=== PATIENT | female | born 1945 | race Caucasian/White ===

== ENCOUNTER 2020-05-11 23:11 | Emergency (ER) | payer MEDICARE ==
[~2020-05-11] VITALS: Ht 152.4 cm; Wt 58.2 kg
[2020-05-11 23:15] VITALS: TEMP 97.7
[2020-05-11 23:42] LABS: BASO % 0.3 % (0.0-2.0); EOS # 0.1 (0.0-0.7); EOS % 1.8 % (0-4.0); GRAN # 5.6 (1.4-6.5); HEMATOCRIT 42.5 % (37.0-47.0); HEMOGLOBIN 14.4 g/dl (12.5-16.0); LYMPH # 1.4 (1.2-3.4); LYMPH % 17.7 % (20.0-51.0); MEAN CELL VOLUME 86 fl (80.0-100.0); MEAN CORPUSCULAR HEMOGLOBIN 29 pg (27.0-31.0); MEAN CORPUSCULAR HGB CONC 34 g/dl (33.0-37.0); MEAN PLATELET VOLUME 12.5 fl (7.4-10.4); MONO # 0.6 (0.1-0.6); MONO % 7.9 % (1.7-9.3); PLATELET COUNT 146 K/mm3 (130-400); RED BLOOD COUNT 4.93 M/mm3 (4.10-5.30); REDCELL DISTRIBUTION WIDTH-CV 13.6 % (11.5-14.5)
[2020-05-11 23:59] LABS: ALANINE AMINOTRANSFERASE 24 U/L (4-34); ALBUMIN 4.1 gm/dL (3.5-5.0); ALKALINE PHOSPHATASE 74 U/L (50-136); ANION GAP 10 mmol/L (7-16); AST,SGOT 34 U/L (15-37); BILIRUBIN,TOTAL 0.7 mg/dL (0.0-1.0); BLOOD UREA NITROGEN 12 mg/dL (7-17); CALCIUM 9.7 mg/dL (8.4-10.2); CARBON DIOXIDE 23 mmol/L (22-30); CHLORIDE 102 mmol/L (98-107); CREATININE, serum 0.61 (0.52-1.25); GLUCOSE 48 mg/dL (74-106); LIPASE 317 U/L (23-300); MAGNESIUM 1.9 mg/dL (1.6-2.3); POTASSIUM 4.2 mmol/L (3.4-5.0); SODIUM 136 mmol/L (137-145); TOTAL PROTEIN 7.5 gm/dL (6.4-8.2)
[2020-05-12 00:06] LABS: C-REACTIVE PROTEIN < 0.5 mg/dL (0.0-0.9); TROPONIN-I < 0.012 ng/mL (0.000-0.035)
[2020-05-12] MEDS ORDERED: ALDACTONE 25MG25 M1 PO (01:00)
[2020-05-12] MEDS ORDERED: LEVOXYL0.112 MG PO (01:00)
[2020-05-12] MEDS ORDERED: GLUCOTROL 5M5 MG/TAB PO (01:01)
[2020-05-12] MEDS ORDERED: COREG 3.123.125 MG/T PO (01:02)
[2020-05-12] MEDS ORDERED: PRINIVIL2.5 MG PO (01:02)
[2020-05-12] MEDS ORDERED: GLUCOPHAGE1000 MG PO (01:03)
[2020-05-12] MEDS ORDERED: ANECREAM TOP (01:04)
[2020-05-12] MEDS ORDERED: TRULICITY0.75 MG/0. SQ (01:05)
[2020-05-12] MEDS ORDERED: RENA-VITE1 TAB PO (01:06)
[2020-05-12] MEDS ORDERED: MASON NATURAL2000 IU PO (01:07)
[2020-05-12 02:13] VITALS: BP 124/48; PULSE 79
== END 2020-05-12 02:40 | disposition home or self-care (01) ==
LOC: COL.ER 23:11
PROVIDERS: Emergency Medicine
DX: E11.649 Type 2 diabetes mellitus with hypoglycemia without coma (principal); R10.13 Epigastric pain; I10 Essential (primary) hypertension; F17.200 Nicotine dependence, unspecified, uncomplicated; Z90.49 Acquired absence of other specified parts of digestive tract; Z90.710 Acquired absence of both cervix and uterus; Z79.84 Long term (current) use of oral hypoglycemic drugs
CPT/HCPCS: J2405; J2550

== ENCOUNTER 2021-01-25 09:01 | Outpatient (RCR) | payer MEDICARE ==
[~2021-01-25 09:01] MED LIST: ALDACTONE50 MG PO; ANECREAM TOP; COREG 3.123.125 MG/T PO; GLUCOPHAGE XR750 MG PO; GLUCOTROL 5M5 MG/TAB PO; LEVOXYL0.1 MG PO; MASON NATURAL2000 IU PO; PRINIVIL2.5 MG PO; RENA-VITE1 TAB PO; TRULICITY0.75 MG/0. SQ
== END 2021-04-05 09:12 | disposition home or self-care (01) ==
LOC: PT.GENESIS 09:01
DX: M79.601 Pain in right arm (principal)

== ENCOUNTER 2021-04-18 08:33 | Emergency (ER) | payer MEDICARE ==
[~2021-04-18] VITALS: Ht 154.9 cm; Wt 59.1 kg
[~2021-04-18 08:33] MED LIST changes: +ALDACTONE 25MG25 M1 PO; -ALDACTONE50 MG PO; -GLUCOPHAGE XR750 MG PO; +GLUCOPHAGE1000 MG PO; -LEVOXYL0.1 MG PO; +LEVOXYL0.112 MG PO
[2021-04-18 08:43] VITALS: TEMP 98.6
[2021-04-18 09:37] LABS: BASO # 0.1 K/mm3 (0.0-0.2); BASO % 0.9 % (0.0-2.0); EOS # 0.1 K/mm3 (0.0-0.7); EOS % 1.9 % (0.0-4.0); GRAN # 3.7 K/mm3 (1.4-6.5); LYMPH # 2.1 K/mm3 (1.2-3.4); LYMPH % 32.7 % (20.0-51.0); MEAN CELL VOLUME 89 fl (80.0-100.0); MEAN CORPUSCULAR HEMOGLOBIN 30 pg (27-31); MEAN CORPUSCULAR HGB CONC 34 g/dl (33.0-37.0); MEAN PLATELET VOLUME 11.5 fl (7.4-10.4); MONO # 0.4 K/mm3 (0.1-0.6); MONO % 6.3 % (1.7-9.3); PLATELET COUNT 142 K/mm3 (130-400); RED BLOOD COUNT 5.28 M/mm3 (4.10-5.30); REDCELL DISTRIBUTION WIDTH-CV 14.1 % (11.5-14.5)
[2021-04-18 09:40] LABS: COLLECTION METHOD CLEAN CATCH
[2021-04-18 09:47] LABS: ALANINE AMINOTRANSFERASE 19 U/L (0-55); ALBUMIN 4.5 gm/dL (3.4-4.8); ALKALINE PHOSPHATASE 58 U/L (40-150); ANION GAP 12 mmol/L (7-16); AST,SGOT 21 U/L (5-34); BILIRUBIN,TOTAL 0.9 mg/dL (0.2-1.2); BLOOD UREA NITROGEN 20 mg/dL (10-20); CALCIUM 10.2 mg/dL (8.4-10.2); CARBON DIOXIDE 22 mmol/L (23-31); CHLORIDE 101 mmol/L (98-107); CREATININE, serum 0.94 mg/dL (0.57-1.11); GLUCOSE 170 mg/dL (70-99); LIPASE 444 U/L (8-78); POTASSIUM 4.6 mmol/L (3.5-4.5); SODIUM 135 mmol/L (136-145); TOTAL PROTEIN 8.5 gm/dL (6.2-8.1)
[2021-04-18 09:50] LABS: PH 7 (5-8); SQUAMOUS EPITHELIAL None Seen /hpf (0-10); URINE APPEARANCE Clear (CLEAR/HAZY); URINE BACTERIA Occasional (NONE SEEN); URINE BILIRUBIN Negative (NEGATIVE); URINE BLOOD Negative (NEGATIVE); URINE COLOR Yellow (YELLOW); URINE GLUCOSE Negative (NEGATIVE); URINE KETONE Negative (NEGATIVE); URINE LEUKOCYTE ESTERASE 2+ (NEGATIVE); URINE NITRATE Negative (NEGATIVE); URINE PROTEIN(semi-quant) Negative (NEGATIVE); URINE RBC None Seen /hpf (0-2); URINE UROBILINOGEN Negative (NEGATIVE)
[2021-04-18 09:55] LABS: TROPONIN-I < 0.010 ng/mL (0.00-0.033)
[2021-04-18] MEDS ORDERED: MACROBID 1100 MG/CAP PO (12:39)
[2021-04-18] MEDS ORDERED: ZOFRAN ODT4 MG PO (12:39)
[2021-04-18 13:12] VITALS: BP 160/71; PULSE 62
== END 2021-04-18 13:20 | disposition home or self-care (01) ==
LOC: COL.ER 08:33
PROVIDERS: Emergency Medicine
DX: N39.0 Urinary tract infection, site not specified (principal); R74.8 Abnormal levels of other serum enzymes; E11.649 Type 2 diabetes mellitus with hypoglycemia without coma; I10 Essential (primary) hypertension; F17.210 Nicotine dependence, cigarettes, uncomplicated; Z79.84 Long term (current) use of oral hypoglycemic drugs; Z20.822 Contact with and (suspected) exposure to COVID-19
CPT/HCPCS: J1885; J2270; J2405; J7030; Q9967

== ENCOUNTER 2021-05-29 07:28 | Observation (INO) | payer MEDICARE ==
[~2021-05-29] VITALS: Ht 154.9 cm; Wt 55.7 kg
[~2021-05-29 07:28] MED LIST changes: -ALDACTONE 25MG25 M1 PO; +ALDACTONE50 MG PO; +GLUCOPHAGE XR750 MG PO; -GLUCOPHAGE1000 MG PO; +LEVOXYL0.1 MG PO; -LEVOXYL0.112 MG PO; +MACROBID 1100 MG/CAP PO; +ZOFRAN ODT4 MG PO
[2021-05-29 07:55] LABS: BASO % 0.4 % (0.0-2.0); EOS # 0.1 K/mm3 (0.0-0.7); EOS % 1.3 % (0.0-4.0); GRAN % 62.9 % (42.2-75.2); HEMATOCRIT 47.3 % (37.0-47.0); HEMOGLOBIN 16.1 g/dl (12.5-16.0); LYMPH # 1.2 K/mm3 (1.2-3.4); MEAN CELL VOLUME 92 fl (80.0-100.0); MEAN CORPUSCULAR HEMOGLOBIN 31 pg (27-31); MEAN CORPUSCULAR HGB CONC 34 g/dl (33.0-37.0); MEAN PLATELET VOLUME 13.1 fl (7.4-10.4); MONO # 0.5 K/mm3 (0.1-0.6); PLATELET COUNT 109 K/mm3 (130-400); RED BLOOD COUNT 5.16 M/mm3 (4.10-5.30); REDCELL DISTRIBUTION WIDTH-CV 14.7 % (11.5-14.5)
[2021-05-29 08:10] LABS: ALBUMIN 4.9 gm/dL (3.4-4.8); BILIRUBIN,TOTAL 0.8 mg/dL (0.2-1.2); CALCIUM 10.7 mg/dL (8.4-10.2); CREATININE, serum 0.88 mg/dL (0.57-1.11); POTASSIUM 4.8 mmol/L (3.5-4.5); TOTAL PROTEIN 9.6 gm/dL (6.2-8.1)
[2021-05-29 08:11] LABS: INR 1.1 (0.8-3.0); PROTHROMBIN TIME 11.7 SECONDS (9.7-12.8)
[2021-05-29 08:14] LABS: PARTIAL THROMBOPLASTIN TIME 33.9 SECONDS (26.0-37.0)
[2021-05-29 08:16] LABS: TROPONIN-I 0.02 ng/mL (0.00-0.033)
--- NOTE | 2021-05-29 13:57 | NUR ---
PT ARRIVED TO THE FLOOR AND HAD A BOUT OF EMESIS, IT WAS GREEN BILE. THE PATIENT STATES THIS HAS BEEN GOING ON FOR ABOUT X1 WEEK. THE CHEST PAIN HAS BEEN INTERMITTENT FOR "A LONG TIME NOW". SHE ASKED FOR THIS RN TO CALL HER DAUGHTER REGARDING HOME MEDICATIONS. [phone] CHRISTEL LERMA.
[2021-05-29] MEDS ORDERED: ARICEPT 5MG PO (13:59)
[2021-05-29] MEDS ORDERED: VOLTAREN GEL 1%1 TU TP (14:27)
--- NOTE | 2021-05-29 15:47 | NUR ---
THE PATIENT HAS NOT HAD ANY MORE VOMITTING SINCE HER ARRIVAL, BUT DID GET ZOFRAN ORDERED FOR WHEN SHE DOES COMPLAIN OF THE NAUSEA AGAIN. NO OTHER CONERNS AT [facility]IST [facility]. THE PATIENT AND FAMILY ARE AWARE OF THE COVID+ TEST, AND DISCUSSIONS WITH CHRISTEL ON WHY THE MOLDER DID NOT DO A DIAGNOSTIC CARDIAC CATH WERE EXPLAINED. THE DAUGHTER CHRISTEL WHO IS THE PATIENT'S PRIMARY CAREGIVER ASSISTED WITH THE PATIENT'S MED REC. NOTIFIED THE PROVIDER OF HER ADMISSION, AND COMPLETED MED REC. THE PATIENT IS NOT REQUIRING ANY O2 AT THIS TIME.
[2021-05-29 16:29] VITALS: BP 124/50; PULSE 52; TEMP 97.7
[2021-05-29 21:08] VITALS: BP 133/55; PULSE 54; TEMP 98.3
[2021-05-29 23:26] VITALS: BP 123/52; PULSE 51; TEMP 98.1
[2021-05-30 03:34] VITALS: BP 116/49; PULSE 57; TEMP 98
--- NOTE | 2021-05-30 05:43 | NUR ---
PT HAD UNEVENTFUL NIGHT THIS SHIFT, 02 ROOM AIR, PT CONTINUES TO C/O OF BACK PAIN THAT RADIATES TO PERIUMBILICAL AREA. ZOFRAN ADMINISTERED FOR N/V., PT FOUND ALLEVIATION. ALL NEEDS MET THIS SHIFT. CALL LIGHT WITHIN REACH.
--- NOTE | 2021-05-30 06:30 | NUR ---
PT LAYING IN BED, HAS A PAIN IN HER LEFT BACK THAT COMES AND GOES INTERMITTENTLY. THE PAIN IS NOT IN HER CHEST, BUT HAS BEEN RADIATING FROM THE LEFT BACK AROUND THE SIDE TO HER LEFT UPPER QUADRANT ABDOMINAL. PT DENIES ANY OTHER ISSUES AT THIS TIME.
[2021-05-30 06:57] LABS: BASO % 0.6 % (0.0-2.0); EOS # 0.1 K/mm3 (0.0-0.7); EOS % 1.3 % (0.0-4.0); GRAN # 2.8 K/mm3 (1.4-6.5); GRAN % 59.2 % (42.2-75.2); LYMPH # 1.3 K/mm3 (1.2-3.4); LYMPH % 26.8 % (20.0-51.0); MEAN CELL VOLUME 90 fl (80.0-100.0); MEAN CORPUSCULAR HEMOGLOBIN 31 pg (27-31); MEAN CORPUSCULAR HGB CONC 35 g/dl (33.0-37.0); MEAN PLATELET VOLUME 11.8 fl (7.4-10.4); MONO # 0.6 K/mm3 (0.1-0.6); MONO % 11.9 % (1.7-9.3); PLATELET COUNT 102 K/mm3 (130-400); RED BLOOD COUNT 4.22 M/mm3 (4.10-5.30); REDCELL DISTRIBUTION WIDTH-CV 14.2 % (11.5-14.5)
[2021-05-30 07:11] LABS: CHOLESTEROL RISK RATIO 4.4; CREATININE, serum 0.74 mg/dL (0.57-1.11)
[2021-05-30 07:20] LABS: HEMOGLOBIN 13.2 g/dl (12.5-16.0)
[2021-05-30 08:21] VITALS: BP 106/48; PULSE 61; TEMP 98.2
--- NOTE | 2021-05-30 10:52 | NUR ---
PT HAS NOT HAD ANY COMPLAINTS ASIDE FROM THE LEFT BACK RADIATING TO THE FRONT LEFT UPPER QUADRANT. SHE STATES THAT IT IS INTERMITTENT AND DOES NOT REQUIRE PAIN MEDICATION WHEN THE PAIN SUBSIDES. DUE TO IT'S INTERMITTENT NATURE, THIS RN HAS NOT GIVEN MORPHINE FOR THAT SUDDEN PAIN. NO OTHER CONCERNS AT THIS TIME. TROPONIN RESULTS 0.[address] CARTER'S NURSE HUBERT BRIDGES.
--- NOTE | 2021-05-30 11:14 | NUR ---
The patient is COVID positive. SW contacted the patient to discuss discharge plan. The patient lives in [place] with her daughter, Milagro Rodgers (ph#[phone]), and son-in-law, Santino (ph#[phone]). She reports independence with ADLs and does not have any DME. The patient's PCP is Dr. Clifford Kendall and she receives her medications from [facility]. She reports no difficulties obtaining her meds. The patient does not have a DPOA-HC and she was not interested in completing one at this time. She was interested in a form, for when she goes home. SW placed a form on the patient's chart. The patient states that she is not and that she has two children: Milagro and Chun Booker ([place], [place]). CR informed her how her children are her next of kin. The patient verbalized understanding. The patient plans on returning home with her family upon discharge. SW to continue to monitor. *Discharge plan: home with family*
[2021-05-30] MEDS ORDERED: IMDUR 60MG60 MG/TAB PO (12:13)
[2021-05-30] MEDS ORDERED: ASPIRIN 81M81 MG/TA2 PO (12:14)
[2021-05-30 12:45] VITALS: BP 91/46; PULSE 64; TEMP 97.9
== END 2021-05-30 14:30 | disposition home or self-care (01) ==
LOC: COL.ER 07:28 → MEDICAL 11:39
PROVIDERS: Emergency Medicine; Physician Assistant; ADMIT Internal Medicine
DX: Z90.49 Acquired absence of other specified parts of digestive tract (principal); U07.1 COVID-19; E87.5 Hyperkalemia; I11.0 Hypertensive heart disease with heart failure; I50.9 Heart failure, unspecified; I34.0 Nonrheumatic mitral (valve) insufficiency; K74.60 Unspecified cirrhosis of liver; E11.10 Type 2 diabetes mellitus with ketoacidosis without coma; E03.9 Hypothyroidism, unspecified; F17.210 Nicotine dependence, cigarettes, uncomplicated; F03.90 Unspecified dementia, unspecified severity, without behavioral disturbance, psychotic disturbance, mood disturbance, and anxiety; Z79.84 Long term (current) use of oral hypoglycemic drugs; Z79.890 Hormone replacement therapy; Z79.899 Other long term (current) drug therapy; Z90.710 Acquired absence of both cervix and uterus; R07.9 Chest pain, unspecified
CPT/HCPCS: G0378; J2270; J2405; Q9967

== ENCOUNTER → 2021-06-12 | Outpatient (CLI) | payer MEDICARE ==
[~2021-06-12] MED LIST changes: +ARICEPT 5MG PO; +ASPIRIN 81M81 MG/TA2 PO; +IMDUR 60MG60 MG/TAB PO; +VOLTAREN GEL 1%1 TU TP
== END ==
LOC: COL.RAD 08:36
DX: R10.9 Unspecified abdominal pain (principal)

== ENCOUNTER 2021-07-04 09:56 | Day surgery (SDC) | payer MEDICARE ==
[~2021-07-04] VITALS: Ht 154.9 cm; Wt 59.4 kg
[2021-07-04 10:22] VITALS: BP 126/57; PULSE 70; TEMP 97.2
[2021-07-04] MEDS ORDERED: SYNTHROID0.112 MG/T PO (10:57)
[2021-07-04] MEDS ORDERED: CALCIUM 600600 MG PO (10:59)
[2021-07-04 11:55] VITALS: BP 125/48; PULSE 64; TEMP 97.1
--- NOTE | 2021-07-04 11:55 | NUR ---
PATIENT TRANSPORTED PER CART FROM GI SUITE TO BAY 7 ACCOMPANIED BY JAYNE RN. PATIENT AMBULATED FROM CART TO CHAIR WITH 2 ASSIST. SLOW STEADY GAIT. MONITORS APPLIED. VSS ON ROOM AIR. PATIENT GIVEN MUFFIN AND DIET PEPSI.
[2021-07-04 12:14] VITALS: BP 137/52; PULSE 66
--- NOTE | 2021-07-04 12:14 | NUR ---
VSS ON ROOM AIR. PATIENT SON IN LAW IN ROOM AND DR STRONG SPEAKS WITH BOTH. PATIENT TOLERATES MUFFIN AND DIET PEPSI WITHOUT PROBLEMS. PATIENT DENIES DISCOMFORT AND NAUSEA.
[2021-07-04 12:30] VITALS: BP 146/63; PULSE 61
--- NOTE | 2021-07-04 12:30 | NUR ---
VSS ON ROOM AIR. PATIENT TALKING WITH SON IN LAW. PATIENT STATES READY TO GO HOME. DENIES C/O'S AND NAUSEA. IV DC'D WITH CATHETER TIP INTACT. PRESSURE AND BANDAGE APPLIED. 1230 DISCHARGE INSTRUCTIONS GIVEN VERBAL AND DISCHARGE PACKET PROVIDED. QUESTIONS ANSWERED AND PATIENT AND SON IN LAW VOICED UNDERSTANDING. PATIENT CHANGES INTO STREET CLOTHES. 1240 PATIENT DISCHARGED PER WHEEL CHAIR ACCOMPANIED BY AMB RN TO PRIVATE VECHILE DRIVEN BY SON IN LAW.
== END 2021-07-04 11:23 | disposition home or self-care (01) ==
LOC: SDCO 09:56
DX: R19.7 Diarrhea, unspecified (principal); R19.4 Change in bowel habit; K70.30 Alcoholic cirrhosis of liver without ascites; K22.4 Dyskinesia of esophagus; K29.50 Unspecified chronic gastritis without bleeding; I34.0 Nonrheumatic mitral (valve) insufficiency; I51.81 Takotsubo syndrome; I42.9 Cardiomyopathy, unspecified; K21.9 Gastro-esophageal reflux disease without esophagitis; R16.0 Hepatomegaly, not elsewhere classified; D69.6 Thrombocytopenia, unspecified; Z86.16 Personal history of COVID-19; Z87.891 Personal history of nicotine dependence; Z79.899 Other long term (current) drug therapy
CPT/HCPCS: J2704; J7120

== ENCOUNTER 2024-04-06 19:50 | Emergency (ER) | payer MEDICARE ==
[~2024-04-06] VITALS: Ht 152.4 cm; Wt 63.6 kg
[~2024-04-06 19:50] MED LIST changes: +CALCIUM 600600 MG PO; +SYNTHROID0.112 MG/T PO
[2024-04-06 19:54] VITALS: TEMP 97.9
[2024-04-06] MEDS ORDERED: Morphine 4 MG/ML VIAL IV ONE (20:30)
[2024-04-06] MEDS ORDERED: Ondansetron 4 MG/2 ML VIAL IV ONE (20:30)
[2024-04-06 21:06] LABS: BASO % 0.5 % (0.0-2.0); EOS # 0.2 K/mm3 (0.0-0.7); EOS % 1.9 % (0.0-4.0); GRAN # 5.1 K/mm3 (1.4-6.5); GRAN % 65.7 % (42.2-75.2); HEMATOCRIT 40.4 % (37.0-47.0); HEMOGLOBIN 14.2 g/dl (12.5-16.0); LYMPH # 1.5 K/mm3 (1.2-3.4); LYMPH % 19.8 % (20.0-51.0); MEAN CELL VOLUME 87 fl (80.0-100.0); MEAN CORPUSCULAR HEMOGLOBIN 31 pg (27-31); MEAN CORPUSCULAR HGB CONC 35 g/dl (33.0-37.0); MEAN PLATELET VOLUME 12.2 fl (7.4-10.4); MONO # 0.9 K/mm3 (0.1-0.6); MONO % 11.8 % (1.7-9.3); PLATELET COUNT 119 K/mm3 (130-400); RED BLOOD COUNT 4.62 M/mm3 (4.10-5.30); REDCELL DISTRIBUTION WIDTH-CV 13.5 % (11.5-14.5)
[2024-04-06 21:09] LABS: INR 1.2 (0.8-3.0); PROTHROMBIN TIME 12.5 SECONDS (9.7-12.8)
[2024-04-06 21:12] LABS: PARTIAL THROMBOPLASTIN TIME 34.2 SECONDS (26.0-37.0)
[2024-04-06 21:23] LABS: ALBUMIN 3.7 g/dL (3.4-4.8); BILIRUBIN,TOTAL 0.6 mg/dL (0.2-1.2); C-REACTIVE PROTEIN 2.89 mg/dL (0.00-0.50); CALCIUM 9.6 mg/dL (8.4-10.2); CREATININE, serum 0.73 mg/dL (0.57-1.11); MAGNESIUM 1.7 mg/dL (1.6-2.6); TOTAL PROTEIN 7.5 g/dl (6.2-8.1)
[2024-04-06 21:28] LABS: TROPONIN-I 0.017 ng/mL (0.00-0.033)
[2024-04-06] MEDS ORDERED: FLEXERIL5 MG PO (21:44)
[2024-04-06] MEDS ORDERED: ALEVE 220MG220 MG PO (21:44)
[2024-04-06 22:07] VITALS: BP 139/58; PULSE 70
== END 2024-04-06 22:07 | disposition home or self-care (01) ==
LOC: COL.ER 19:50
PROVIDERS: Emergency Medicine
DX: M54.6 Pain in thoracic spine (principal); R07.89 Other chest pain
CPT/HCPCS: J2270; J2405